=== PATIENT | male | born 1980 | race Caucasian/White ===

== ENCOUNTER 2018-04-13 09:28 | Emergency (ER) | payer SELFPAY ==
[2018-04-13 09:32] VITALS: BP 142/85
--- NOTE | 2018-04-13 09:44 | EDPHY ---
General Time Seen by Provider: 04/13/18 09:41 Narrative: CHIEF COMPLAINT: Sore throat HISTORY OF PRESENT ILLNESS: Patient presents with complaints of sore throat. It has been present for several days. It is now rated as severe. [id number] 1st. Difficulty eating and drinking and swallowing. The pain is worse on the right than the left but he does have pain on both sides. No difficulty opening the mouth. No fever. No vomiting. No chest pain, shortness of breath or cough. No abdominal complaints. No neck pain or stiffness. REVIEW OF SYSTEMS: 10 systems were reviewed and negative with the exception of the elements mentioned in the history of present illness. PCP: None SPECIALISTS: None PAST MEDICAL HISTORY: Uncomplicated. PAST SURGICAL HISTORY: No surgical history. SOCIAL HISTORY: Quit smoking cigarettes 9 years ago, 10 pack year history. Denies alcohol or drug use. Recently moved from [place]. Not currently working. FAMILY HISTORY: Noncontributory EXAMINATION: General Appearance: Alert, no distress Head: normocephalic, atraumatic Eyes: Pupils equal and round, no conjunctival pallor or injection ENT, Mouth: Mucous membranes moist. Uvula is midline. There is symmetric erythema with tonsillar exudate bilaterally. There is no trismus. Airway is widely patent. I do not appreciate any evidence of peritonsillar abscess. Neck: Normal inspection, supple. No meningismus or rigidity. There is tender anterior cervical lymphadenopathy. Respiratory: Lungs are clear to auscultation. No wheezing rhonchi or crackles Cardiovascular: Regular rate and rhythm. No murmur Gastrointestinal: Abdomen is soft and nontender Skin: Warm and dry, no rash Extremities: Nontender, no pedal edema Psychiatric: Mood and affect normal DIFFERENTIAL DIAGNOSES: Including but not limited to viral pharyngitis, strep pharyngitis, Scott's angina, upper respiratory infection MDM: 9:40 a.m. Acute pharyngitis with symmetry of the tonsils, midline uvula and no trismus. Do not appreciate any evidence of peritonsillar abscess. He is talking in complete sentences without difficulty. There is no drooling, stridor. Elected to treat him empirically given the presentation of his pharynx. I did obtain a swab. he is discharged with Decadron, antibiotics, salt water rinses short course of pain medication. Provided the ENT on-call physician. Provided the on -call primary care physician as he is new to the area would like to establish. We discussed ED precautions for any unilateral pain or swelling, difficulty opening the mouth, fever, intolerance of liquids. He is comfortable this plan and discharged home stable condition. SUPERVISION: This patient was independently evaluated without direct involvement of or examination by the attending physician. CONSULTATION: None - History Smoking Status: Former smoker - Objective Vital Signs: Initial Vital Signs Temperature (C) 99.0 F 04/13/18 09:31 Heart Rate 93 04/13/18 09:31 Respiratory Rate 16 04/13/18 09:31 Blood Pressure 142/85 H 04/13/18 09:31 O2 Sat (%) 96 04/13/18 09:31 O2 Delivery Mode Room Air Allergies/Adverse Reactions: No Known Allergies Allergy (Unverified 04/13/18 09:30) Home Medications: Medication Instructions Recorded Amoxicillin/Clavulanate Pot 875 mg PO BID #20 tab 04/13/18 [Augmentin 875 MG TAB (*)] Dexamethasone [Decadron 4 MG (*)] 8 mg PO DAILY #4 tab 04/13/18 oxyCODONE HCL/ACETAMINOPHEN 1 each PO Q4-6PRN PRN #5 tablet 04/13/18 [Percocet 5-325 mg Tablet] Laboratory Results: 04/13/18 04/13/18 Unknown 09:47 Group A Strep Screen NEGATIVE (NEGATIVE) Group A Strep DNA Pending Departure - Departure Disposition: Home, Routine, Self-Care Clinical Impression: Acute pharyngitis Qualifiers: Pharyngitis/tonsillitis etiology: unspecified etiology Qualified Code(s): J02.9 - Acute pharyngitis, unspecified Condition: Good Instructions: Pharyngitis (ED), Strep Throat (ED) Additional Instructions: 1. Salt water rinses 4 times daily 2. Antibiotics as prescribed to completion 3. Steroid as prescribed 1 dose today and 1 dose tomorrow morning 4. Pain medication as prescribed as needed 5. Follow up with ENT physician if symptoms not improved the next 24-48 hours 6. ED precautions for any unilateral pain or swelling, difficulty opening or closing her mouth, fever, intolerance of liquids Referrals: Saleem Islas MD [Medical Doctor] - As per Instructions Tania Centeno MD [Medical Doctor] - As per Instructions Prescriptions: Amoxicillin/Clavulanate Pot [Augmentin 875 MG TAB (*)] 875 mg PO BID #20 tab Dexamethasone [Decadron 4 MG (*)] 8 mg PO DAILY #4 tab oxyCODONE HCL/ACETAMINOPHEN [Percocet 5-325 mg Tablet] 1 each PO Q4-6PRN PRN #5 tablet PRN Reason: Pain, Breakthrough
== END 2018-04-13 10:02 | disposition home or self-care (01) ==
DX: J02.9 Acute pharyngitis, unspecified (principal); Z87.891 Personal history of nicotine dependence

== ENCOUNTER 2018-07-18 16:11 | Emergency (ER) | payer SELFPAY ==
[2018-07-18] MEDS ORDERED: NS 1,000 ML IV ONE ×2 (16:39→16:55)
--- NOTE | 2018-07-18 16:47 | EDPHY ---
General Time Seen by Provider: 07/18/18 16:44 Narrative: CHIEF COMPLAINT: Passed out after donating plasma HISTORY OF PRESENT ILLNESS: Patient presents private vehicle with his significant other with complaints of passing out after donating plasma. He was doing plasma 12:00 p.m. Today, which he is on several times. He states that 2 hr later he began to feel very flushed , sweaty and felt like he was going to pass out. He describes some decreased vision and almost passing out. He laid down and did not lose consciousness fully. He had no chest pain during any of this. He has had no previous episode of this. He states that he is feeling much better now but felt very symptomatic walking into the emergency department. he has no other associated complaints or modifying factors. REVIEW OF SYSTEMS: 10 systems were reviewed and negative with the exception of the elements mentioned in the history of present illness. PCP: None SPECIALISTS: None PAST MEDICAL HISTORY: Denies PAST SURGICAL HISTORY: Denies SOCIAL HISTORY: Admits to daily tobacco use. Occasional alcohol use. Occasional marijuana use. Recently moved from [place]. FAMILY HISTORY: Noncontributory EXAMINATION: Vitals: Triage VS reviewed General Appearance: Alert, no distress. No acute distress. Head: normocephalic, atraumatic Eyes: Pupils equal and round, no conjunctival pallor or injection EOM symmetric. No nystagmus. ENT, Mouth: Mucous membranes moist. Poor dentition. Neck: Normal inspection, supple, non-tender Respiratory: Lungs are clear to auscultation Cardiovascular: Regular rate and rhythm. No murmur. Gastrointestinal: Abdomen is soft and nontender Back: non-tender, no bony abnormalities Neurological: Cranial nerves 2-12 grossly intact. A&O, nonfocal, normal gait Skin: Warm and dry, no rash. Tattoos noted. Extremities: Nontender, no pedal edema Psychiatric: Mood and affect normal DIFFERENTIAL DIAGNOSES: Including but not limited to syncope, vasovagal episode, orthostasis, dehydration, conduction delay MDM: 4:40 p.m. Loss of consciousness soon after donating plasma today. The patient was mildly diaphoretic and pale upon arrival. Vital signs with a systolic pressure in the 90s. History examination suggest vasovagal/orthostatic hypotension. He is awake alert. He is mentating appropriately. No chest pain at any time today. EKG has been obtained. IV fluid has been ordered. He is feeling much better at this time. 6:20 p.m. Patient re-evaluated. He has received 2 L IV fluid. Vital signs are within normal limits. He appears to be feeling much better. He has been ambulated with assistance in the emergency department. He was feeling well, symptom free with no return of syncope or near-syncope. We discussed discharge home with increase fluid intake. We discussed ED precautions for any chest pain, lightheadedness, dizziness or syncope. We discussed avoiding alcohol or marijuana. We discussed follow up primary care physician. He is comfortable this plan. His significant other is comfortable this plan. He is well- appearing and discharged home stable condition. SUPERVISION: This patient was independently evaluated without direct involvement of or examination by the attending physician. CONSULTATION: - Diagnostics EKG: I reviewed patient's EKG. See [employer] system for interpretation Imaging: I viewed and interpreted images myself - History Smoking Status: Never smoked - Objective Vital Signs: Initial Vital Signs Temperature (C) 97.7 F 07/18/18 16:17 Heart Rate 94 07/18/18 16:17 Respiratory Rate 16 07/18/18 16:17 Blood Pressure 90/65 L 07/18/18 16:17 O2 Sat (%) 97 07/18/18 16:17 O2 Delivery Mode Room Air Allergies/Adverse Reactions: No Known Allergies Allergy (Unverified 04/13/18 09:30) Home Medications: Medication Instructions Recorded Amoxicillin/Clavulanate Pot 875 mg PO BID #20 tab 04/13/18 [Augmentin 875 MG TAB (*)] Dexamethasone [Decadron 4 MG (*)] 8 mg PO DAILY #4 tab 04/13/18 oxyCODONE HCL/ACETAMINOPHEN 1 each PO Q4-6PRN PRN #5 tablet 04/13/18 [Percocet 5-325 mg Tablet] Laboratory Results: Laboratory Results 07/18/18 16:45 07/18/18 07/18/18 07/18/18 16:45 16:42 16:41 WBC 14.97 10^3/uL H 10^3/uL (3.80-9.50) RBC 5.99 10^6/uL 10^6/uL (4.40-6.38) Hgb 17.8 g/dL H g/dL (13.7-17.5) POC Hgb 18.4 gm/dL H gm/dL (13.7-17.5) Hct 53.3 % H % (40.0-51.0) POC Hct 54 % H % (40-51) MCV 89.0 fL fL (81.5-99.8) MCH 29.7 pg pg (27.9-34.1) MCHC 33.4 g/dL g/dL (32.4-36.7) RDW 13.4 % % (11.5-15.2) Plt Count 385 10^3/uL 10^3/uL (150-400) POC Sodium 142 mEq/L mEq/L (135-145) POC Potassium 3.8 mEq/L mEq/L (3.3-5.0) POC Chloride 106 mEq/L mEq/L (97-110) POC BUN 11 mg/dL mg/dL (7-23) POC Creatinine 0.9 mg/dL mg/dL (0.7-1.3) POC Glucose 125 mg/dL H mg/dL (70-100) POC Troponin I 0.00 ng/mL ng/mL (0.00-0.08) Medications Given: Discontinued Medications Sodium Chloride (Ns) 1,000 mls @ 0 mls/hr IV EDNOW ONE; Wide Open PRN Reason: Protocol Stop: 07/18/18 16:40 Last Admin: 07/18/18 16:40 Dose: 1,000 mls Sodium Chloride (Ns) 1,000 mls @ 0 mls/hr IV EDNOW ONE; Wide Open PRN Reason: Protocol Stop: 07/18/18 16:56 Last Admin: 07/18/18 17:28 Dose: 1,000 mls Point of Care Test Results: Chemistry 07/18/18 07/18/18 16:42 16:41 POC Sodium 142 mEq/L mEq/L (135-145) POC Potassium 3.8 mEq/L mEq/L (3.3-5.0) POC Chloride 106 mEq/L mEq/L (97-110) POC BUN 11 mg/dL mg/dL (7-23) POC Creatinine 0.9 mg/dL mg/dL (0.7-1.3) POC Glucose 125 mg/dL H mg/dL (70-100) POC Troponin I 0.00 ng/mL ng/mL (0.00-0.08) ISTAT H&H 07/18/18 16:41 POC Hgb 18.4 gm/dL H gm/dL (13.7-17.5) POC Hct 54 % H % (40-51) Departure - Departure Disposition: Home, Routine, Self-Care Clinical Impression: Vasovagal episode, Volume depletion Condition: Good Instructions: Syncope (ED) Additional Instructions: 1. Increase fluid intake the next 48 hr 2. Avoid alcohol or marijuana for the next 48 hr 3. ED precautions for any return of syncope, near syncope, lightheadedness, dizziness or chest pain Referrals: Carl Schmitz MD [Medical Doctor] - As per Instructions Physician,Emergency DeptMD [Medical Doctor] - As per Instructions
[2018-07-18 18:47] VITALS: BP 121/83
--- NOTE | 2018-07-18 22:32 | CPEKG ---
Test Reason : OPEN Blood Pressure : / mmHG Vent. Rate : 081 BPM Atrial Rate : 082 BPM P-R Int : 147 ms QRS Dur : 096 ms QT Int : 361 ms P-R-T Axes : 028 068 047 degrees QTc Int : [address] elev, probable normal early repol pattern Confirmed by Skinny Crespo ([id number]) on 07/18/2018 10:32:33 PM Referred By: Confirmed By:Skinny Crespo
== END 2018-07-18 18:46 | disposition home or self-care (01) ==
DX: R55 Syncope and collapse (principal); E86.9 Volume depletion, unspecified
CPT/HCPCS: 82435-PO; 82565-PO; 82947-PO; 84132-PO; 84295-PO; 84484-PO; 84520-PO; 85014-PO